=== PATIENT | male | born 1975 | race African-American/Black ===

== ENCOUNTER 2019-10-21 09:26 | Emergency (ER) | payer MEDICAID ==
[~2019-10-21] VITALS: Ht 182.9 cm; Wt 83.9 kg
[2019-10-21 09:38] VITALS: BP 137/88
--- NOTE | 2019-10-21 10:00 | NUR ---
RECEIVED A 44/M FROM TRIAGE FOR RT SIDED TESTICULAR PAIN AND SWELLING X 2 DAYS. PT DENIES ANY UTI S/SX. DENIES ANY URINARY COMPLAINTS. DENIES RECENT INJURY/UNRPOTECTED INTERCOURSE. IN BED FOR MSE.
--- NOTE | 2019-10-21 11:21 | NUR ---
US AT BEDSIDE.
[2019-10-21 11:23] LABS: APPEARANCE,URINE CLEAR (CLEAR); BILIRUBIN,URINE NEGATIVE (NEGATIVE); BLOOD, URINE NEGATIVE (NEGATIVE); COLOR,URINE YELLOW (YELLOW); LEUKOCYTE ESTERASE ,URINE NEGATIVE (NEGATIVE); NITRITE, URINE NEGATIVE (NEGATIVE); UGLUCOSE NEGATIVE (NEGATIVE)
--- NOTE | 2019-10-21 13:26 | NUR ---
REPORT RECEIVED FROM SHERRIE HIGGINS. PT RESTING IN BED, RESP EVEN AND UNLABORED.
--- NOTE | 2019-10-21 13:38 | NUR ---
Dr. Yuong is evaluating the patient at bedside.
[2019-10-21 14:33] VITALS: BP 120/89
--- NOTE | 2019-10-21 14:33 | NUR ---
Patient discharged with v/s stable. Written and verbal after care instructions given and explained. Patient alert, oriented and verbalized understanding of instructions. Ambulatory with steady gait. All questions addressed prior to discharge. ID band removed. Patient advised to follow up with PMD. Rx of IBUPROFEN, DOXCYCLINE given. Patient educated on indication of medication including possible reaction and side effects. Opportunity to ask questions provided and answered.
[2019-10-23 06:07] LABS: CHLAMYDIA TRACHOMATIS AMP DNA Negative (Negative)
== END 2019-10-21 14:33 | disposition home or self-care (01) ==
LOC: MED 09:26
DX: N45.3 Epididymo-orchitis (principal); F12.90 Cannabis use, unspecified, uncomplicated; Z88.0 Allergy status to penicillin
CPT/HCPCS: 36415; 76870; 81003; 87086; 87491; 99284; Q0092